=== PATIENT | male | born 1965 | race Caucasian/White ===

== ENCOUNTER 2018-08-30 20:51 | Emergency (ER) | payer BC ==
[~2018-08-30] VITALS: Ht 180.3 cm; Wt 77.1 kg
--- NOTE | 2018-08-30 21:15 | NUR ---
ED Nurse Note: Patient walked in to ER c/o left flank pain 06/09. Deny N/V/D. Per patient pain comes and goes, but today it was bad. AAO x4, VSS at this time, skin is dry intact, warm to touch.
[2018-08-30 21:18] VITALS: BP 109/65
--- NOTE | 2018-08-30 21:21 | Emergency Room Report ---
History of Present Illness General Chief Complaint: Abdominal Pain Source: Patient Present Illness HPI This is a 52-year-old male with no past medical history. He presents with chief complaint of left lower back pain. Onset for 2 weeks now. On and off. When it comes on severely is 10 out of 10. Now 4 out of 10. Worse with movement. Worse with palpation. Saw his primary care doctor who thought it may be been his kidney. He was to order a CAT scan but did not turn in the paperwork. No urinary complaint. No hematuria. Allergies: Coded Allergies: No Known Allergies (Unverified , 08/30/18) Patient History Past Medical History: see triage record, old chart reviewed Past Surgical History: none Pertinent Family History: none Social History: Denies: smoking Immunizations: other Reviewed Nursing Documentation: PMH: Agreed; PSxH: Agreed Nursing Documentation-PMH Past Medical History: No Stated History Review of Systems Eye: Denies: eye pain, blurred vision ENT: Denies: ear pain, nose congestion, throat swelling Respiratory: Denies: cough, shortness of breath Cardiovascular: Denies: chest pain, palpitations Gastrointestinal: Denies: abdominal pain, diarrhea, nausea, vomiting Musculoskeletal: Denies: back pain, joint pain Skin: Denies: rash Neurological: Denies: headache, numbness Endocrine: Denies: increased thirst, increased urine Hematologic/Lymphatic: Denies: easy bruising All Other Systems: negative except mentioned in HPI Physical Exam Vital Signs Date Time Temp Pulse Resp B/P (MAP) Pulse Ox O2 Delivery O2 Flow Rate FiO2 08/30/18 20:55 98.1 75 16 109/65 (80) 95 Room Air Vitals normal Sp02 EP Interpretation: reviewed, normal General Appearance: well appearing, no apparent distress, alert Head: normocephalic, atraumatic Eyes: bilateral eye PERRL, bilateral eye EOMI ENT: hearing grossly normal, normal pharynx Neck: full range of motion, supple, no meningismus Respiratory: chest non-tender, lungs clear, normal breath sounds Cardiovascular #1: regular rate, rhythm, no murmur Gastrointestinal: normal bowel sounds, non tender, no mass, no organomegaly, no bruit, non-distended Musculoskeletal: back normal, gait/station normal, normal range of motion, other - Tenderness to the left lower flank. Psychiatric: mood/affect normal Medical Decision Making Diagnostic Impression: Primary Impression: Ureteral calculus, left ER Course Patient with a left ureteral kidney stone. No evidence of infection. Pain is well controlled. Will discharge home with urology referral. CT/MRI/US Diagnostic Results CT/MRI/US Diagnostic Results : Imaging Test Ordered: CT abdomen and pelvis Impression Read by radiologist. Left distal ureteral stone. 5 mm to moderate hydro-utero nephrosis. No obstruction. Last Vital Signs Date Time Temp Pulse Resp B/P (MAP) Pulse Ox O2 Delivery O2 Flow Rate FiO2 08/30/18 20:55 98.1 75 16 109/65 (80) 95 Room Air Status: improved Disposition: HOME, SELF-CARE Condition: Stable Scripts Tamsulosin HCl (Flomax) 0.4 Mg Cap.er.24h 0.4 MG ORAL DAILY, #30 CAP Prov: Kannan Barnett MD 08/30/18 Ibuprofen* (MOTRIN*) 600 Mg Tablet 600 MG ORAL THREE TIMES A DAY, #30 TAB 0 Refills Prov: Kannan Barnett MD 08/30/18 Hydrocodone/Acetaminophen 5-325* (HYDROCODONE/ACETAMINOPHEN 5-325*) 1 Each Tablet 1 TAB ORAL Q6H PRN for For Pain, #20 TAB 0 Refills Prov: Kannan Barnett MD 08/30/18 Additional Instructions: Increase fluids. Follow-up with your doctor in 7 days. You may need a referral to see a urologist. Return if worse. Kannan Barnett MD Aug 30, 2018 21:21
[2018-08-30] MEDS ORDERED: Ketorolac 30mg Inj IV ONE (21:30)
[2018-08-30 22:06] LABS: ANION GAP 10 mmol/L (5-15); BLOOD UREA NITROGEN 22 mg/dL (7-18); CALCIUM 9.3 MG/DL (8.5-10.1); CARBON DIOXIDE 28 MMOL/L (21-32); CHLORIDE 107 MMOL/L (98-107); CREATININE 1.3 MG/DL (0.55-1.30); POTASSIUM 4.2 MMOL/L (3.5-5.1); SODIUM 145 MMOL/L (136-145)
[2018-08-30 22:07] LABS: APPEARANCE,URINE CLEAR; BASOPHILS % (AUTO) 0.9 % (0.0-2.0); BILIRUBIN, URINE NEGATIVE (NEGATIVE); COLOR,URINE PALE YELLOW; EOSINOPHILS % (AUTO) 2.1 % (0.0-3.0); GLUCOSE, URINE (UA) NEGATIVE (NEGATIVE); HEMATOCRIT 40.4 % (42.0-52.0); HEMOGLOBIN 13.7 G/DL (14.2-18.0); KETONES,URINE NEGATIVE (NEGATIVE); LEUKOCYTE ESTERASE ,URINE 2+ (NEGATIVE); LYMPHOCYTES % (AUTO) 26.7 % (20.0-45.0); MEAN CORPUSCULAR VOLUME 98 FL (80-99); NEUTROPHILS % (AUTO) 62.3 % (45.0-75.0); NITRITE,URINE NEGATIVE (NEGATIVE); PH,URINE 5 (4.5-8.0); PLATELET COUNT 209 K/UL (150-450); PROTEIN,URINE NEGATIVE (NEGATIVE); RED BLOOD COUNT 4.14 M/UL (4.70-6.10); RED CELL DISTRIBUTION WIDTH 10.8 % (11.6-14.8); UROBILINOGEN,URINE NORMAL MG/DL (0.0-1.0); WHITE BLOOD COUNT 6.6 K/UL (4.8-10.8)
[2018-08-30] MEDS ORDERED: HYDROCODON-ACE1 EA15 ORAL (22:40)
[2018-08-30] MEDS ORDERED: IBUPROFEN600 MG ORAL (22:40)
[2018-08-30] MEDS ORDERED: FLOMAX0.4 MG ORAL (22:41)
[2018-08-30 22:45] VITALS: BP 109/65
--- NOTE | 2018-08-30 23:14 | NUR ---
ER DISCHARGE NOTE: Patient is cleared to be discharged per ERMD, pt is aox4, on room air, with stable vital signs. pt was given dc and prescription instructions, pt was able to verbalize understanding, pt id band and iv site removed without complications. pt is able to ambulate with steady gait. pt took all belongings.
--- NOTE | 2018-08-31 09:45 | Diagnostic Imaging Report ---
Indication: Abdominal pain Technique: Continuous helical transaxial imaging of the abdomen and pelvis was obtained from the lung bases to the pubic symphysis. No intravenous contrast was administered. Coronal 2-D reformats were also obtained. Automatic Exposure Control was utilized. Total Dose length Product (DLP): 801.[address] Dose Index Volume (CTDIvol): 14.79 mGy Comparison: none Findings: Mild left hydroureteronephrosis secondary to a 6 mm distal ureteral stone demonstrated. Appendix is normal. No free fluid identified. Pattern is nonobstructive. Gallbladder is contracted and unremarkable otherwise. Lung bases are clear. IMPRESSION: Left hydroureteronephrosis secondary to a 6 mm stone has communicated the preliminary results to the Emergency Department. There are no significant discrepancies. The CT scanner at [facility] is accredited by the [employer] and the scans are performed using dose optimization techniques as appropriate to a performed exam including Automatic Exposure control.
== END 2018-08-30 22:45 | disposition home or self-care (01) ==
LOC: EMR 21:30
DX: N13.2 Hydronephrosis with renal and ureteral calculous obstruction (principal)
CPT/HCPCS: 36415; 74176; 80048; 81003; 85025; 96374; 99284; J1885